=== PATIENT | male | born 1970 | race Caucasian/White ===

== ENCOUNTER 2021-05-24 07:49 | Emergency (ER) | payer OTHER ==
[2021-05-24] MEDS ORDERED: Lidocaine 1% 10 ML MDV INJECT ONE (08:03)
[2021-05-24] MEDS ORDERED: Diphtheria,Pertussis(Acell),Tetanus Vaccine 0.5 ML Syringe IM ONE (08:03)
--- NOTE | 2021-05-24 08:04 | EDM.PDOC ---
ED [facility] GENERAL MEDICAL PROBLEM - General Stated Complaint: CUT L HAND Time Seen by Provider: 05/24/21 08:02 - History of Present Illness INITIAL COMMENTS - FREE TEXT/NARRATIVE: History of present illness: [] Review of systems: As per history of present illness and below otherwise all systems reviewed and negative. Past medical history: As per history of present illness and as reviewed below otherwise noncontributory. Surgical history: As per history of present illness and as reviewed below otherwise noncontributory. Social history: No reported history of drug or alcohol abuse. Family history: As per history of present illness and as reviewed below otherwise noncontributory. Physical exam: Constitutional - well developed, well-nourished and in no acute distress HEENT - normocephalic, no evidence of trauma - external nose and mouth normal - no mass in neck and no JVD - mucosae moist EYES - full EOM, PERRL, no icterus - no evidence of inflammation, injection, or drainage Respiratory - no respiratory distress, equal bilateral expansion Musculoskeletal no gross deformity of long bones or joints - no tenderness, swelling or edema Neurologic - Alert and oriented times four - CN II-XII grossly intact - motor sensory and coordination symmetrically normal Psychiatric - appropriate mood and affect with normal thought content Hematologic - No petechiae or purpura - mucosa appropriate color and sclera not pale - normal nail bed color and refill Integument -3 cm laceration on the proximal dorsal thumb of the left hand with active venous bleeding-otherwise no rash or evidence of trauma - normal turgor Diagnostics: [] Therapeutics: [] Impression: [] Plan: [] Definitive disposition and diagnosis as appropriate pending reevaluation and review of above. Left Hand Pain Score (Numeric/FACES): 1 - Related Data Allergies Allergy/AdvReac Type Severity Reaction Status Date / Time No Known Allergies Allergy Verified 05/24/21 08:14 Home Meds: Home Meds Escitalopram [Lexapro] 20 mg PO DAILY 07/20/14 [History] atorvaSTATin [Lipitor] 20 mg PO DAILY 05/24/21 [History] ED ROS GENERAL - Review of Systems Review Of Systems: Comprehensive ROS is negative, except as noted in HPI. ED EXAM, GENERAL - Physical Exam Exam: See Below Free Text/Narrative:: My physical exam is in the [facility] ED GENERAL MEDICAL PROCEDURES - Laceration/Wound Repair Left Hand Lac/wound length in cm: 3 Appearance: Subcutaneous Distal NVT: Neuro & Vascular Intact, No Tendon Injury Anesthetic Type: Local Local Anesthesia - Lidocaine (Xylocaine): 1% Plain Local Anesthetic Volume: Other (7cc) Skin Prep: Chlorhexidine (Hibiciens), Saline Saline irrigation (cc's): 200 Exploration/Debridement/Repair: Wound Explored, Other (After establishing there was rapid venous blood flow the repair was done with a tourniquet.) Suture Size: 5-0 # of Sutures: 10 Suture Type: Nylon, Running Progress/Comments: Running stitches applied then pressure dressing. Course - Vital Signs Last Recorded V/S: Last Vital Signs Temp 36.6 C 05/24/21 08:14 Pulse 75 05/24/21 08:14 Resp 16 05/24/21 08:14 BP 147/78 H 05/24/21 08:14 Pulse Ox 97 05/24/21 08:14 - Orders/Labs/Meds Orders: Active Orders 24 hr Category Date Time Status Vaccines to be Administered [RC] PER UNIT ROUTINE Care 05/24/21 08:03 Active Meds: Medications Discontinued Medications Generic Name Dose Route Start Last Admin Trade Name Freq PRN Reason Stop Dose Admin Diphtheria/Tetanus/Acell Pertussis 0.5 ml 05/24/21 08:03 05/24/21 08:23 Diphtheria,Pertussis(Acell),Tetanus Vaccine 0.5 Ml Syringe IM 05/24/21 08:04 0.5 ml .ONCE ONE Administration Lidocaine HCl 10 ml 05/24/21 08:03 05/24/21 08:22 Lidocaine 1% 10 Ml Mdv INJECT 05/24/21 08:04 Not Given ONETIME ONE Lidocaine HCl 10 ml 05/24/21 08:22 05/24/21 08:23 Lidocaine 1% 5 Ml Sdv INJECT 05/24/21 08:23 10 ml ONETIME ONE Administration Lidocaine HCl Confirm 05/24/21 08:19 05/24/21 08:23 Lidocaine 1% 5 Ml Sdv Administered 05/24/21 08:20 Not Given Dose 10 ml .ROUTE .STK-MED ONE Departure - Departure Time of Disposition: 09:05 Disposition: Home, Self-Care 01 Condition: Good Clinical Impression: Laceration of left hand - Discharge Information Instructions: Laceration Care, Adult Referrals: José Rao MD [Primary Care Provider] - Forms: ED Department Discharge Additional Instructions: Sutures out 7 to 10 days. Pressure dressing 4 hours. Loosen dressing if thumb or fingers are numb. [facility] - Primary Care [address] [place] [id number] [facility] [address] [place] [id number] The following information is given to patients seen in the emergency department who are being discharged to home. This information is to outline your options for follow-up care. We provide all patients seen in our emergency department with a follow-up referral. The need for follow-up, as well as the timing and circumstances, are variable depending upon the specifics of your emergency department visit. If you don't have a primary care physician on staff, we will provide you with a referral. We always advise you to contact your personal physician following an emergency department visit to inform them of the circumstance of the visit and for follow-up with them and/or the need for any referrals to a consulting specialist. The emergency department will also refer you to a specialist when appropriate. This referral assures that you have the opportunity for follow-up care with a specialist. All of these measure are taken in an effort to provide you with optimal care, which includes your follow-up. Under all circumstances we always encourage you to contact your private physician who remains a resource for coordinating your care. When calling for follow-up care, please make the office aware that this follow-up is from your recent emergency room visit. If for any reason you are refused follow-up, please contact the [facility] Emergency Department at and asked to speak to the emergency department charge nurse. Sepsis Event Note (ED) - Focused Exam Vital Signs: Vital Signs Temp Pulse Resp BP Pulse Ox 05/24/21 08:14 36.6 C 75 16 147/78 H 97 - My Orders Last 24 Hours: My Active Orders 05/24/21 08:03 Vaccines to be Administered [RC] PER UNIT ROUTINE - Assessment/Plan Last 24 Hours: My Active Orders 05/24/21 08:03 Vaccines to be Administered [RC] PER UNIT ROUTINE
[2021-05-24 08:16] VITALS: BP 147/78; PULSE 75
== END 2021-05-24 09:15 | disposition home or self-care (01) ==
LOC: MW.ED 07:49
DX: S61.412A Laceration without foreign body of left hand, initial encounter (principal); Z23 Encounter for immunization; Z79.899 Other long term (current) drug therapy; W26.8XXA Contact with other sharp object(s), not elsewhere classified, initial encounter
CPT/HCPCS: 12002; 90471; 90715; 99282-25

== ENCOUNTER 2024-03-21 07:31 | Day surgery (SDC) | payer OTHER ==
[~2024-03-21 07:31] MED LIST: Sodium Chloride 0.9% 10 ML Syringe FLUSH PRN; Sodium Chloride 0.9% 2.5 ML Syringe FLUSH PRN; Sodium Chloride 0.9% 20 ML SDV IV PRN
[2024-03-21] MEDS: Lactated Ringers 1,000 ML IV SCH (07:59)
[2024-03-21] MEDS ORDERED: Magnesium Sulfate (4.06 MEQ/ML) 5 GM/10 ML SDV ONE (08:00)
[2024-03-21] MEDS ORDERED: propofoL 50 ML ONE (08:00)
[2024-03-21 11:02] VITALS: BP 105/63; PULSE 84
== END 2024-03-21 11:05 | disposition home or self-care (01) ==
LOC: MW.SDS 07:31
PROVIDERS: ATTEND Surgery
DX: C18.5 Malignant neoplasm of splenic flexure (principal); K57.30 Diverticulosis of large intestine without perforation or abscess without bleeding; F41.9 Anxiety disorder, unspecified; E78.00 Pure hypercholesterolemia, unspecified; G47.33 Obstructive sleep apnea (adult) (pediatric); E11.9 Type 2 diabetes mellitus without complications; K59.00 Constipation, unspecified; R14.0 Abdominal distension (gaseous); I10 Essential (primary) hypertension; Z86.16 Personal history of COVID-19; Z79.899 Other long term (current) drug therapy; Z79.84 Long term (current) use of oral hypoglycemic drugs; Z87.891 Personal history of nicotine dependence
CPT/HCPCS: 36415; 45380; 82378; 82947; J2704; J3475; J7120; 00811